=== PATIENT | female | born 1975 ===

== ENCOUNTER 2023-08-19 06:44 | Day surgery (SDC) | payer OTHER ==
[~2023-08-19 06:44] MED LIST: CATAFLAM50 MG PO; CIPRO500 MG PO; CYMBALTA20 MG; RECTICARE30 GM TP; ULTRACET PO; XANAX2 MG; ZOLOFT100 MG PO
[2023-08-19] MEDS ORDERED: METRONIDAZOLE/SODIUM CHLORIDE 500 MG/100 ML PIGGYBACK IV ONE (09:11)
[2023-08-19] MEDS ORDERED: CEFTRIAXONE SODIUM 2,000 MG VIAL ONE (09:11)
[2023-08-19] MEDS ORDERED: HEMOSTATIC MATRIX 1 KIT KIT TOP ONE (09:12)
[2023-08-19] MEDS ORDERED: PERCOCET 5-3251 EACH PO (10:43)
[2023-08-19] MEDS ORDERED: RECTICARE30 GM TOP (10:43)
== END 2023-08-19 15:50 | disposition home or self-care (01) ==
LOC: CIR.AMB 06:44
PROVIDERS: ATTEND Surgery
DX: K64.3 Fourth degree hemorrhoids (principal); K64.4 Residual hemorrhoidal skin tags; K62.89 Other specified diseases of anus and rectum; E03.9 Hypothyroidism, unspecified; K92.1 Melena; N80.9 Endometriosis, unspecified; F41.8 Other specified anxiety disorders